=== PATIENT | female | born 1955 | race Caucasian/White ===

== ENCOUNTER 2019-08-10 00:40 | Inpatient (IN) | payer OTHER, MEDICAID ==
[~2019-08-10] VITALS: Ht 167.6 cm; Wt 83.0 kg
[2019-08-10 00:45] VITALS: BP 133/82
[2019-08-10 01:25] LABS: BASO # 0.1 10*3/uL (0.0-0.1); BASO % 0.6 % (0.0-1.0); EOS # 0.2 10*3/uL (0.0-0.4); EOS % 1.9 % (1.0-4.0); HEMATOCRIT 37.7 % (37.0-47.0); HEMOGLOBIN 11.9 g/dl (12.0-16.0); LYMPH # 1.2 10*3/uL (1.3-4.4); LYMPH % 11.2 % (27.0-41.0); MEAN CELL VOLUME 85.3 fl (81.0-99.0); MEAN CORPUSCULAR HGB 26.9 pg (27.0-31.0); MEAN CORPUSCULAR HGB CONC 31.6 g/dl (33.0-37.0); MEAN PLATELET VOLUME 10.4 fl (9.6-12.3); MONO # 0.8 10*3/uL (0.1-1.0); MONO % 7.5 % (3.0-9.0); NEUT # 8.5 10*3/uL (2.3-7.9); NEUT % 78.4 % (47.0-73.0); PLATELET COUNT AUTOMATED 241 10*3/uL (130-400); RED BLOOD COUNT 4.42 10*6/uL (4.10-5.10); RED CELL DISTRI WIDTH 13.5 % (0-14.5); WHITE BLOOD COUNT 10.8 10*3/uL (4.8-10.8)
[2019-08-10 01:41] LABS: ALBUMIN 3.4 gm/dl (3.1-4.5); ALKALINE PHOSPHATASE 84 U/L (45-117); BUN 13 mg/dl (7-24); CHLORIDE 91 mmol/L (98-107); CREATININE 1.37 mg/dL (0.55-1.02); POTASSIUM 2.7 mmol/L (3.5-5.1); SGOT/AST 14 IU/L (3-35); SGPT/ALT 16 U/L (12-78); SODIUM 135 mmol/L (136-145); TOTAL PROTEIN 7.3 gm/dL (6.4-8.2)
[2019-08-10 01:46] LABS: ACETAMINOPHEN (TYLENOL) < 5.0 ug/ml (10-30); ETHYL ALCOHOL < 3.0 mg/dl (<3)
[2019-08-10 02:29] LABS: BILIRUBIN NEGATIVE (NEGATIVE); BLOOD NEGATIVE (NEGATIVE); CLARITY SL CLOUDY (CLEAR); COLOR YELLOW (YELLOW); GLUCOSE NEGATIVE (NEGATIVE); KETONE NEGATIVE (NEGATIVE); NITRITE NEGATIVE (NEGATIVE); SPECIFIC GRAVITY 1.005 (1.005-1.030); UROBILINOGEN 0.2 E.U./dl (0.2-1.0)
[2019-08-10 02:30] LABS: EPITHELIAL CELLS 15-20; LEUKO ESTERASE TRACE (NEGATIVE); URINE AMPHETAMINES < 1000 (1000ng/ml); URINE BARBITURATES < 200 (200ng/ml); URINE BENZODIAZEPINES < 200 (200ng/ml); URINE CANNABINOIDS (THC) < 50 (50ng/ml); URINE COCAINE < 300 (300ng/ml); URINE METHADONE < 300 (300ng/ml); URINE OPIATES < 300 (300ng/ml)
[2019-08-10 02:33] LABS: URINE PHENCYCLIDINE < 25 (25ng/ml)
--- NOTE | 2019-08-10 05:17 | NUR ---
iv infusing per orders. no complaints. pleasant and cooperative.
--- NOTE | 2019-08-10 06:14 | NUR ---
PT ASSISTED TO REPOSITION FOR COMFORT. NO COMPLAINTS.
--- NOTE | 2019-08-10 06:32 | NUR ---
PROVIDED PT WITH ICE WATER PER REQUEST. NO COMPLAINTS. PLEASANT AND COOPERATIVE.
--- NOTE | 2019-08-10 06:53 | NUR ---
pt pleasant and cooperative. no complaints at this time.
[2019-08-10 07:15] VITALS: BP 126/80
--- NOTE | 2019-08-10 07:16 | NUR ---
NURSE REPORT RECEIVED. PT AWAKE AND ALERT. POTASSIUM INFUSED. BILATERAL WRIST WOUNDS WILL BE CLEANSED AND PHOTOGRAPHED NOW. NO VOICED COMPLAINTS.
--- NOTE | 2019-08-10 10:05 | NUR ---
family at bedside. POTASSIUM LEVEL NOW RETURNS, STILL LOW DESPITE MULTIPLE K+ DOSES. VITALS STABLE. LUNCH TRAY ORDERED. ADMISSION TO [facility]. IS PENDING ONCE K+ LEVEL IS WITHIN NORMAL LIMITS.
[2019-08-10 10:06] VITALS: BP 134/86
--- NOTE | 2019-08-10 10:12 | NUR ---
PT MEDICATED WITH MORE POTASSIUM PER ORDER. NO VOICED COMPLAINTS. CALLBELL IN PLACE.
--- NOTE | 2019-08-10 11:43 | NUR ---
NOW ORDERS AN ADDITIONAL K+ LEVEL TO BE DRAWN BY LAB. MEAL TRAY ORDERED.
--- NOTE | 2019-08-10 13:36 | NUR ---
[facility] CALLS REQUESTING THE ORIGINAL PINK SLIP FROM PREVIOUS SHIFT INSTEAD OF DR COWART'S PINK SLIP. ADMISSION THERE IS PENDING. PT SITTING UP WATCHING TV WITHOUT VOICED COMPLAINTS. MEAL TRAY AND TOILETING HAVE BEEN PROVIDED.
[2019-08-10] MEDS ORDERED: BREO ELLIPTA 21 EACH INH (14:34)
[2019-08-10] MEDS ORDERED: COREG6.25 MG PO (14:34)
[2019-08-10] MEDS ORDERED: DOFETILIDE125 MCG PO (14:35)
[2019-08-10] MEDS ORDERED: LASIX20 MG PO (14:36)
[2019-08-10] MEDS ORDERED: NATURE'S BLEND F1 MG PO (14:36)
[2019-08-10] MEDS ORDERED: LEVOXYL88 MCG PO (14:37)
[2019-08-10] MEDS ORDERED: PROTONIX TR40 M1 PO (14:38)
[2019-08-10] MEDS ORDERED: SINGULAIR10 M1 PO (14:38)
[2019-08-10] MEDS ORDERED: FERREX 150150 MG PO (14:40)
[2019-08-10] MEDS ORDERED: KLOR-CON 1010 ME1 PO (14:41)
[2019-08-10] MEDS ORDERED: PROAIR HFA8.5 GM INH (14:42)
[2019-08-10] MEDS ORDERED: RISPERDAL0.5 MG PO (14:43)
[2019-08-10] MEDS ORDERED: SPIRIVA RESPIMAT4 GM INH (14:44)
[2019-08-10] MEDS ORDERED: VENLAFAXINE150 MG PO (14:45)
[2019-08-10] MEDS ORDERED: MAGNESIUM400 M1 PO (14:45)
[2019-08-10] MEDS ORDERED: XARE20MG PO (14:46)
--- NOTE | 2019-08-10 15:02 | NUR ---
DR. SIFUENTES NOTIFIED OF NEW ADMISSION, DIAGNOSIS AND MEDICATIONS UPDATED AND REVIEWED. PATIENT WILL BE UNDER THE CARE OF DR. RIZZO.
[2019-08-10 15:27] VITALS: BP 135/72
--- NOTE | 2019-08-10 15:30 | NUR ---
DR. DIAZ ON UNIT TO ASSESS PATIENT.
--- NOTE | 2019-08-10 15:54 | NUR ---
IP 3 days yajaira per REMIGIO Trujillo 08/12. Ref # [id number]. Concurrent reviewer will be Kelly [phone].
--- NOTE | 2019-08-10 16:20 | NUR ---
DR. ALICEA ON UNIT TO ASSESS PATIENT.
--- NOTE | 2019-08-10 18:23 | NUR ---
DR. RODRIGUEZ NOTIFIED OF BILATERAL WRIST LACERATIONS AND NEEDING TREATMENTS IN PLACE. LEFT WIRST HAS YELLOW DRAINAGE, NO ODOR PRESENT.
--- NOTE | 2019-08-10 18:35 | NUR ---
DR. DIAZ ON UNIT TO ASSESS WRIST.
[2019-08-10 19:34] VITALS: BP 135/72
--- NOTE | 2019-08-10 19:35 | NUR ---
PATIENT IS ALERT AND ORIENT TO PERSON, PLACE AND SITUAITON; SLOW THOUGHT PROCESS, WORD FINDING DIFFICULTIES, THOUGHT BLOCKING DURING ASSESSMENT. DIFFICULTY WITH ATTENTION TO INTERVIEW QUESTIONS WITH MANY CUEING AND REMINDERS. PATIENT GUARDED REGARDING BEING DEPRESSED AND ASKING ABOUT SUICIDAL THOUGHTS, REFUSED TO ANSWER OR COMPLETE SUICIDAL ASSESSMENT. DENIES HAVING SUICIDAL THOUGHTS. DR. CUENCA UPDATED. PATIENT TO BE A LIGHT OF SIGHT UNTIL EVALUATED IN THE MORNING. PATIENT HAS VERY DRY SKIN, B/L GREAT TOES RED AND BLANCHABLE. BILATERAL ELBOW ROUGH WITH DRY SKIN. LACERATIONS TO BILATERAL WRIST ASSESSED AND DR. RODRIGUEZ UPDATED, DR. DIAZ ON UNIT TO ASSESS AND TREATMENT ORDERS IN PLACE. PATIENT IN DINING WITH OTHER PATIENT.
--- NOTE | 2019-08-10 22:00 | NUR ---
Patient alert and oriented x4. ST memory deficits noted. Patient denies SI at this time. No s/s of any responding to internal stimuli. Patient compliant with HS medications without any difficulty. Provided 1:1 for therapeutic communication and emotional support. Patient refused to talk anything regarding suicide at this time. Patient continues to be line of sight. Encouraged patient to contract for safety. Plan to continue to encourage medication compliance and also to contract for safety. Also continue to provide emotional support and provide for therapeutic communication with patient when needed. Will continue to monitor moods/behaviors. See [facility] flowsheet for further documentation.
--- NOTE | 2019-08-11 00:31 | NUR ---
24 HR chart check completed.
--- NOTE | 2019-08-11 06:17 | NUR ---
Patient slept approx. 8 hours throughout shift. Line of sight continued and maintained.
[2019-08-11 07:06] LABS: CHOLESTEROL 206 mg/dL (<200); HDL CHOLESTEROL 46 mg/dl (40-60); LDL CHOLESTEROL 136 mg/dL (9-159); TRIGLYCERIDES 120 mg/dl (<150); VLDL CHOLESTEROL 24 mg/dL (6-40)
[2019-08-11 07:43] LABS: VITAMIN D, 25-HYDROXY 44.2 ng/mL (30-100)
--- NOTE | 2019-08-11 07:43 | NUR ---
SHARLENE VALDIVIA [id number] Please refer to the physician's history and physical for past medical history, comorbid conditions, and allergies. Diagnosis: MAJOR DEPRESSION SEVERE RECURRENT GENERALIZED Rm Score: 18,AT RISK WOUND DESCRIPTIONS: Wound Number: 1 Location of the wound: Left wrist distal Type of wound: laceration Thickness: Full Size: 0.5cm x 4.5cm x 0.1cm Tunneling: none Undermining: none Sinus Tract: none Presence of Exudate: Serous Amount: Light Color: Yellow, red, brown Odor: None Periwound Skin Appearance: Normal Wound edges: approximated Pain (associated with wound): none at time of assessment How does patient state this happened? pt stated she cut herself on friday Wound Number: 2 Location of the wound: left wrist proximal Type of wound: laceration Thickness: Full Size: 0.7cm x 4.2cm x 0.1cm Tunneling: none Undermining: none Sinus Tract: none Presence of Exudate: Serous Amount: Light Color: Yellow, red Odor: None Periwound Skin Appearance: Normal Wound edges: approximated Pain (associated with wound): none at time of assessment How does patient state this happened? pt stated she cut herself on friday Wound Number: 3 Location of the wound: right wrist distal Type of wound: laceration Thickness: Partial Size: 0.2cm x 2.2cm x <0.1cm Tunneling: none Undermining: none Sinus Tract: none Presence of Exudate: none Amount: none Color: Red Odor: None Periwound Skin Appearance: Normal Wound edges: approximated Pain (associated with wound): none at time of assessment How does patient state this happened? pt stated she cut herself on friday Wound Number: 4 Location of the wound: right wrist proximal Type of wound: laceration Thickness: Partial Size: 0.2cm x 4.0cm x <0.1cm Tunneling: none Undermining: none Sinus Tract: none Presence of Exudate: none Amount: None Color: Red Odor: None Periwound Skin Appearance: Normal Wound edges: approximated Pain (associated with wound): none at time of assessment How does patient state this happened? pt stated she cut herself on friday Surface the patient is resting on: Proform SKIN PREVENTION RECOMMENDATION: 1. Pressure redistribution support surface as appropriate 2. Elevate heels 3. Remove boots/TEDS every shift and reapply 4. Head of bed 30 degrees as tolerated 5. Assess nutrition and hydration 6. Manage moisture 7. Avoid the use of containment devices while in bed 8. Use absorptive products on surfaces limit layers of linens on bed 9. Turn and reposition every 1-2 hours in bed and every 1 hour in chair as tolerated 10. Weight shifts every 15 minutes while up in chair 11. Offloading with pillows or device to keep heels elevated off bed 12. Monitor skin at least every shift 13. Inspect under medical devices twice a day WOUND TREATMENT RECOMMENDATIONS: Cleanse left wrist and right wrist with nss and apply bactroban bid and cover with dsd. Patient states she will care for these areas when she returns home and doesn't want to follow up in an outpatient setting at this time.
[2019-08-11 08:00] VITALS: BP 129/73
--- NOTE | 2019-08-11 08:05 | NUR ---
Treatment Plan meeting was held with Dr. Boone, URIEL Dickerson, RN, AT, COMMISSARY CLERK-S and Customer Care Manager. Plan for discharge next Week. Pt. to return home at discharge. Dr. Boone Gave Orders for Pt. to sign Voluntary Admission due to Vale Slip.
--- NOTE | 2019-08-11 08:45 | NUR ---
DR CUENCA ON UNIT TO ASSESS PT, LINE OF SIGHT D/C
--- NOTE | 2019-08-11 10:31 | NUR ---
Dr. Hill notified of wound care recommendations.
--- NOTE | 2019-08-11 10:37 | NUR ---
DR ALICEA AND TEAM ON UNIT TO ASSESS PT, UPDATE PROVIDED.
--- NOTE | 2019-08-11 11:01 | NUR ---
SPOKE WITH PTS SISTER ZACHARY, WHO IS QUESTIONING IF WE ARE ABLE TO GETS PTS [place]. SPOKE WITH DR DIAZ AT [phone] PER IF FAMILY IS ABLE TO BRING THE MEDICATION FROM HOME PLEASE HAVE THEM DO SO
--- NOTE | 2019-08-11 11:37 | NUR ---
AM GROUP PT PARTICIPATED IN ASSESSMENT AND THEN WENT TO GET A SHOWER. PT WAS RELUCTANT TO ANSWER SOME QUESTIONS BUT WAS COOPERATIVE OVERALL.
--- NOTE | 2019-08-11 15:30 | NUR ---
P: PT FIXATED ON HER MEDICATIONS, REPEATING THE NAME OF HER MEDICATIONS OVER AND OVER AGAIN AND STATING "WHAT IF I FORGET THE NAME?", PT ANXIOUS AT TIMES. PT PARANOID STATING "IM SORRY IF I UPSET YOU TODAY." PT SHOWING SIGNS OF INCREASED CONFUSION. WHEN STAFF WAS ASSISTING PT WITH HER SHOWER, PT WAS UNABLE TO FOLLOW SIMPLE DIRECTIONS. PT SPEECH NON-SENISICAL AND INAPPROPRAITE TO SITUATION AT TIMES. I: PROVIDE EMOTIONAL SUPPORT AND 1:1 FOR PT TO VOICE FEELINGS, PROVIDE MED EDUCATION, ADVISED PT THAT UPON DISCHARGE SHE WILL RECEIVE A LIST OF HER CURRENT MEDICATIONS AND STAFF WILL REVIEW THEM WITH HER PRIOR TO DISCHARGE. PROVIDE REASSURANCE TO PT THAT SHE HAS NOT UPSET ANYONE TODAY. R: PT ALERT TO PERSON, PLACE AND TIME AND SITUATION, SHORT TERM MEMORY DEFICITS AND PERIODS OF CONFUSION NOTED AT THIS TIME. PT MED COMPLIANT WITHOUT DIFFICULTY. PT DENIES ANY SUICIDAL THOUGHTS AT THIS TIME. NO HALLUCINATIONS OR DELUSIONS NOTED. PT AMBULATORY THROUGHOUT UNIT, GAIT SLOW AND STEADY. PT CONTINENT OF BOWEL AND BLADDER. P: MONITOR PT BEHAVIORS ON Q15 MIN SAFETY CHECKS, ENCOURAGE MED COMPLIANCE AND PROVIDE MED EDUCATION, PROVIDE EMOTIONAL SUPPORT AND 1:1 FOR PT TO VOICE FEELINGS, RE-ORIENT AND PRESENT RELAITY NEEDED
--- NOTE | 2019-08-11 15:34 | NUR ---
PM GROUP PT ATTENDED AFTERNOON GROUP THERAPY AND PARTICIPATED IN ALL ACTIVITIES. PT WAS FOCUSED AND ON TASK. PT EXPRESSED NO SUICIDAL IDEATIONS WHILE IN GROUP
--- NOTE | 2019-08-11 16:05 | NUR ---
Met with pt individually this afternoon. Pt was cooperative. Pt was slow to speak as if processing information before responding. However, pt was not displaying thought blocking as she did yesterday when speaking to this personal lines underwriter. Pt confirmed again to this personal lines underwriter that pt is not facing any extreme stressors currently in her life. Pt also confirmed that she has no emotional response to her SA and admitted that it is odd that she has no emotions about it. Pt spoke of her sister Dinorah and of how close they are. Offered to schedule a family meeting, but pt declined this. Pt then spoke of enjoying the coloring that she did in afternoon group. Pt asked to speak to Radha Linares, social work coordinator. After pt met with Radha briefly, this personal lines underwriter continued to speak with pt. Pt spoke of her etelvina and asked if there could be a Bible study. Informed pt that there wasn't one planned but that this personal lines underwriter could provide some devotions for pt to read. Pt became very animated and stated, "Yes, that's exactly what I need. Can you bring them to me?" Provided devotional pages to pt.
--- NOTE | 2019-08-11 17:15 | NUR ---
SPOKE WITH DR DIAZ AT [phone] RE: PT WOUNDS ORDERS AND THE ORDER FOR BACTROBAN IS STILL NEEDED. NO FURTHER ORDERS AT THIS TIME.
[2019-08-11 20:00] VITALS: BP 128/78
--- NOTE | 2019-08-11 23:44 | NUR ---
P-CONFUSED, PARANOID I-REDIRECTION WITH 1:1 THERAPEUTIC INTERVENTIONS AND PRESENT REALITY. EDUCATE AND ENCOURAGE GROUP THERAPY WHILE AWAKE R-PATIENT ALERT WITH SHORT TERM AND IRON INSTALLER MEMORY DEFICITS. PATIENT MEDICATION COMPLIANT AT HS. PATIENT PROVIDED NOURISHMENT AND FLUIDS AT HS. PATIENT WITH NO HALLUCINATIONS BUT WITH PARANOID DELUSIONS. PATIENT STATING "I DON'T WANT TO GO IN MY ROOM BECAUSE I DON'T THINK [facility] LIKES ME". PATIENT ABLE TO GO TO ROOM TO GO TO BED WITH REDIRECTION. PATIENT WITH NO SUICIDAL OR HOMICIDAL IDEATIONS. PATIENT WITH LIMITED INTERACTION WITH PEERS IN DINING AREA. P-CONTINUE TO ENCOURAGE MEDICATION COMPLIANCE, CONTINUE TO PRESENT REALITY, ENCOURAGE GROUP THERAPY WHILE AWAKE
[2019-08-12 08:00] VITALS: BP 153/78
--- NOTE | 2019-08-12 08:00 | NUR ---
Treatment Plan meeting was held with Dr. Boone, RN, AT and Brick Stacker. Plan for discharge Friday. Pt. will return home at discharge.
--- NOTE | 2019-08-12 08:09 | NUR ---
Patient eating breakfast at this time in dining room with peers. Respirations easy and regular. Vital signs stable. No overt distress. REANNA KAISER on unit to see pt at this time, update given.
--- NOTE | 2019-08-12 09:04 | NUR ---
Dr. Chambers notified of wound care recommendations
--- NOTE | 2019-08-12 10:16 | NUR ---
PT STANDING IN THE [address] WAY LEANING AGAINST THE WALL, WHEN ASKED WHAT SHE WAS DOING PT STATED "BREATHING, I LIVE IN [place] AND I WEAR OXYGEN AT HOME AND THE DRS DON'T COMMUNICATE." ADVISED PT THAT SHE DOES NOT CURRENTLY HAS AN ORDER FOR O2. O2 100%RA, PULSE 88. NO S/S OF DISTRESS NOTED AT THIS TIME. PT STATED "THAT OTHER WOMAN'S OXYGEN IS MAKING ME ANXIOUS." STAFF PROVIDED EMOTIONAL SUPPORT AND 1:1 FOR PT TO VOICE FEELINGS, PROVIDED EDUCATION THAT PT DOES NOT REQUIRE OXYGEN AT THIS TIME D/T HER O2 LEVEL BEING 100% ON ROOM AIR. ENCOURAGED PT TO REST AND PRACTICE DEEP BREATHING EXERCISES. PT SITTING IN THE DINING ROOM AT THIS TIME, NO FURTHER ISSUES NOTED.
--- NOTE | 2019-08-12 11:35 | NUR ---
DR WEBSTER AND DR SIFUENTES ON UNIT TO ASSESS PT, UPDATE PROVIDED.
--- NOTE | 2019-08-12 13:31 | NUR ---
AM GROUP PT ATTENDED MORNING GROUP THERAPY AND PARTICIPATED BY BUILDING A BIRDHOUSE. PT WAS FOCUSED AND ON TASK. PT EXPRESSED NO PARANOIA OR SUICIDAL IDEATIONS WHILE IN GROUP
--- NOTE | 2019-08-12 14:55 | NUR ---
IP 5 additional days yajaira per Kelly at [facility], NRD 08/18.
--- NOTE | 2019-08-12 15:46 | NUR ---
PM GROUP PT ATTENDED AFTERNOON GROUP THERAPY AND PARTICIPATED BY COLORING AND CONVERSING WITH THIS FRICTION PAINT MACHINE TENDER. PT THOUGHT PROCESS IS MUCH BETTER THAN YESTERDAY. PT WAS ON TOPIC AND FLUENT. PT EXPRESSED NO SUICIDAL IDEATIONS DURING GROUP AND STATED, "I THINK I AM GOING TO DO OUTPATIENT REHAB WHEN I LEAVE" PT SEEMED HOPEFUL FOR HER FUTURE.
--- NOTE | 2019-08-12 17:13 | NUR ---
SPOKE WITH DR SIFUENTES AT [phone] RE: CLARIFICATION FOR BACTROBAN. NEW ORDERS RECEIVED.
[2019-08-12 19:42] VITALS: BP 114/64
--- NOTE | 2019-08-13 03:21 | NUR ---
P-CONFUSED, PARANOID/PREOCCUPIED I-REDIRECTION WITH 1:1 THERAPEUTIC INTERVENTIONS AND PRESENT REALITY. EDUCATE AND ENCOURAGE GROUP THERAPY WHILE AWAKE R-PATIENT ALERT WITH SHORT TERM AND VP SOFTWARE SUPPORT MEMORY DEFICITS. PATIENT MEDICATION COMPLIANT AT HS. PATIENT PROVIDED NOURISHMENT AND FLUIDS AT HS. PATIENT WITH NO HALLUCINATIONS BUT WITH PARANOID AND PREOCCUPIED WITH MEDICATIONS AT HS. THIS NURSE PROVIDED MEDICATION EDUCATION DUE TO PATIENT AFRAID OF TAKING NEW MEDICATION. MEDICATION EDUCATION EFFECTIVE AT HS. PATIENT WITH NO SUICIDAL OR HOMICIDAL IDEATIONS. PATIENT WITH INTERACTION WITH PEERS IN DINING AREA. P-CONTINUE TO ENCOURAGE MEDICATION COMPLIANCE, CONTINUE TO PRESENT REALITY, ENCOURAGE GROUP THERAPY WHILE AWAKE
--- NOTE | 2019-08-13 05:47 | NUR ---
PATIENT SLEPT 8 HOURS OF UNINTERRUPTED SLEEP THROUGHOUT SHIFT. Q 15 MINUTE CHECKS MAINTAINED. 24 HR chart check completed.
[2019-08-13 07:58] VITALS: BP 116/64
--- NOTE | 2019-08-13 11:40 | NUR ---
AM GROUP PT ATTENDED MORNING GROUP THERAPY AND PARTICIPATED BY PAINTING HER BIRDHOUSE. PT BECAME PARANOID OVER HAVING TEMPERA PAINT ON HER HANDS. PT WAS ASSURED THAT IT WAS WASHABLE. PT BECAME MORE PARANOID AND AGITATED STATING, "IT HAS TO COME OFF, THEY NEED TO SCRUB MY WOUNDS!" PT WAS GIVEN WIPES TO CLEAN HER HANDS AND STATED, "OKAY, ENOUGH! DON'T TALK ANYMORE!" PT WAS GIVEN SPACE.
--- NOTE | 2019-08-13 12:45 | NUR ---
P: PT ANXIOUS AT TIMES. PT MOOD IS DEPRESSED. I: PROVIDE EMOTIONAL SUPPORT AND 1:1 FOR PT TO VOICE FEELINGS, ENCOURAGE MED COMPLIANCE AND PROVIDE MED EDUCATION, ENCOURAGE GROUP PARTICIPATION AND SOCIALIZATION R: PT ALERT TO PERSON, PLACE, TIME AND SITUATION. PT MED COMPLIANT WITHOUT DIFFICULTY, MED EDUCATION PROVIDED. PT CALM, MOOD REMAINS DEPRESSED AND ANXIOUS AT TIMES. NO HALLUCINATIONS OR DELUSIONS NOTED. PT DENIES ANY SUICIDAL THOUGHTS OR BEHAVIORS NOTED. PT AMBULATORY THROUGHOUT UNIT, GAIT STEADY. PT CONTINENT OF BOWEL AND BLADDER. P: PROVIDE EMOTIONAL SUPPORT AND 1:1 FOR PT TO VOICE FEELINGS, ENCOURAGE MED COMPLIANCE AND PROVIDE MED EDUCATION, MONITOR PT BEHAVIORS ON Q15 MIN SAFETY CHECKS, ENCOURAGE GROUP PARTICIPATION AND SOCIALIZATION
--- NOTE | 2019-08-13 15:40 | NUR ---
PM GROUP PT ATTENDED AFTERNOON GROUP THERAPY AND PARTICIPATED BY DOING A WORDSEARCH AND [place]. PT EXPRESSED NO PARANOIA OR SUICIDAL IDEATIONS WHILE IN GROUP
[2019-08-13 20:00] VITALS: BP 133/75
--- NOTE | 2019-08-13 23:16 | NUR ---
P-CONFUSED, ISOLATIVE I-REDIRECTION WITH 1:1 THERAPEUTIC INTERVENTIONS AND PRESENT REALITY. EDUCATE AND ENCOURAGE GROUP THERAPY WHILE AWAKE R-PATIENT ALERT WITH SHORT TERM AND SHELTER MEMORY DEFICITS. PATIENT MEDICATION COMPLIANT AT HS. PATIENT PROVIDED NOURISHMENT AND FLUIDS AT HS. PATIENT WITH NO HALLUCINATIONS OR DELUSIONS. PATIENT WITH NO SUICIDAL OR HOMICIDAL IDEATIONS. PATIENT ISOLATIVE IN ROOM AT HS P-CONTINUE TO ENCOURAGE MEDICATION COMPLIANCE, CONTINUE TO PRESENT REALITY, ENCOURAGE GROUP THERAPY WHILE AWAKE
--- NOTE | 2019-08-14 06:19 | NUR ---
PATIENT SLEPT 8 HOURS OF UNINTERRUPTED SLEEP THROUGHOUT SHIFT. Q 15 MINUTE CHECKS MAINTAINED. 24 HR chart check completed.
[2019-08-14 07:25] VITALS: BP 110/59
[2019-08-14 07:27] LABS: CREATININE 1.4 mg/dL (0.55-1.02); POTASSIUM 3.4 mmol/L (3.5-5.1); TOTAL PROTEIN 6.2 gm/dL (6.4-8.2)
--- NOTE | 2019-08-14 12:08 | NUR ---
AM GROUP/LEISURE PT IN ATTENDNACE AND PARTICIPATED ENTIRE GROUP. PT PLEASANT AND ON TASK WITH NO S.I. OR PARANOIA EXPRESSED.
--- NOTE | 2019-08-14 15:32 | NUR ---
P: DEPRESSED MOOD. I: PROVIDED 1:1 FOR THERAPEUTIC COMMUNICATION. ENCOURAGED MEDICATION COMPLIANCE. MONITORED BEHAVIORS WITH Q15 MINUTE SAFETY CHECKS. ENCOURAGED PT TO ATTEND/PARTICIPATE IN GROUP. ASSISTED PT IN IDENTIFYING COPING SKILLS. PROVIDED MEDICATION EDUCATION. R: PT SPOKE TO THIS NURSE, HOWEVER WAS GUARDED. MEDICATION COMPLIANT WITHOUT DIFFICULTY. PT ATTENDED/PARTICIPATED IN GROUP. PT ABLE TO IDENTIFY 3 COPING SKILLS. PT VERBALIZED UNDERSTANDING OF MEDICATIONS. DENIES SI/HI THOUGHTS. DENIES DEPRESSION. ANBULATORY WITH A STEADY GAIT. P: PROVIDE 1:1 FOR THERAPEUTIC COMMUNICATION. ENCOURAGE MEDICATION COMPLIANCE. MONITOR BEHAVIORS WITH Q15 MINUTE SAFETY CHECKS. ENCOURAGE PT TO ATTEND/PARTICIPATE IN GROUP. ASSIST PT IN IDENTIFYING COPING SKILLS. PROVIDE MEDICATION EDUCATION. SEE [facility] FLOWSHEET FOR SPECIFIC MONITORING.
--- NOTE | 2019-08-14 15:57 | NUR ---
PM GROUP/BINGO!/CRISTOPHERFT PT ATTENDED AN DPARTICIPATED IN ALL GROUP ACTIVITY. PT EXPRESSES NO S.I. OR PARANOIA AT THIS TIME.
[2019-08-14 20:00] VITALS: BP 112/60
--- NOTE | 2019-08-15 00:36 | NUR ---
P-CONFUSED I-REDIRECTION WITH 1:1 THERAPEUTIC INTERVENTIONS AND PRESENT REALITY. EDUCATE AND ENCOURAGE GROUP THERAPY WHILE AWAKE R-PATIENT ALERT WITH SHORT TERM AND SENIOR CARE MEMORY DEFICITS. PATIENT MEDICATION COMPLIANT AT HS. PATIENT PROVIDED NOURISHMENT AND FLUIDS AT HS. PATIENT WITH NO HALLUCINATIONS OR DELUSIONS. PATIENT WITH NO SUICIDAL OR HOMICIDAL IDEATIONS. PATIENT INTERACTING WITH PEERS IN DINING AREA AT HS. P-CONTINUE TO ENCOURAGE MEDICATION COMPLIANCE, CONTINUE TO PRESENT REALITY, ENCOURAGE GROUP THERAPY WHILE AWAKE
--- NOTE | 2019-08-15 06:09 | NUR ---
PATIENT SLEPT 6 HOURS OF INTERRUPTED SLEEP THROUGHOUT SHIFT. Q 15 MINUTE CHECKS MAINTAINED. 24 HR chart check completed.
[2019-08-15 08:00] VITALS: BP 139/71
--- NOTE | 2019-08-15 17:28 | NUR ---
P: DEPRESSED MOOD. I: PROVIDED 1:1 FOR THERAPEUTIC COMMUNICATION. ENCOURAGED MEDICATION COMPLIANCE. MONITORED BEHAVIORS WITH Q15 MINUTE SAFETY CHECKS. ENCOURAGED PT TO ATTEND/PARTICIPATE IN GROUP. ASSISTED PT IN IDENTIFYING COPING SKILLS. PROVIDED MEDICATION EDUCATION. R: PT SPOKE TO THIS NURSE, HOWEVER WAS GUARDED. MEDICATION COMPLIANT WITHOUT DIFFICULTY. PT ATTENDED/PARTICIPATED IN GROUP. PT ABLE TO IDENTIFY 3 COPING SKILLS. PT VERBALIZED UNDERSTANDING OF MEDICATIONS. DENIES SI/HI THOUGHTS. DENIES DEPRESSION. ANBULATORY WITH A STEADY GAIT. P: PROVIDE 1:1 FOR THERAPEUTIC COMMUNICATION. ENCOURAGE MEDICATION COMPLIANCE. MONITOR BEHAVIORS WITH Q15 MINUTE SAFETY CHECKS. ENCOURAGE PT TO ATTEND/PARTICIPATE IN GROUP. ASSIST PT IN IDENTIFYING COPING SKILLS. PROVIDE MEDICATION EDUCATION. [facility] FLOWSHEET FOR SPECIFIC MONITORING.
[2019-08-15 20:00] VITALS: BP 116/61
[2019-08-16 07:40] VITALS: BP 127/74
--- NOTE | 2019-08-16 08:30 | NUR ---
Treatment Plan meeting was held with Dr. Boone, URIEL Dickerson RN, MANAGER HEMATOLOGY-S and Wharf Labourer. Plan for discharge next week. Pt. came to [facility] from the [facility]. Will reach out to facility today to discuss discharge planning.
--- NOTE | 2019-08-16 08:30 | NUR ---
Treatment Plan meeting was held with Dr. Boone, URIEL Dickerson RN, OFFICE ASST-S and Sight Mounter. Plan for discharge today with return home with Follow up appointments scheduled.
[2019-08-16] MEDS ORDERED: ARIPIPRAZOLE10 MG PO (09:51)
[2019-08-16] MEDS ORDERED: PRISTIQ50 MG PO (09:51)
--- NOTE | 2019-08-16 10:32 | NUR ---
notified of discharge for today.
--- NOTE | 2019-08-16 11:41 | NUR ---
AM GROUP PT WAS PRESENT FOR MORNING GROUP THERAPY AND DID SOME ACTIVITIES BUT COULD NOT STAY WITH ONE TASK FOR MORE THAN 5 MINUTES,STATING "I JUST CAN'T DO THIS RIGHT NOW" PT BELIEVES THAT SHE WILL NOT BE DISCHARGED TODAY STATING, "I DON'T KNOW? SOMETHING MIGHT HAPPEN?" WHEN PRESSED, PT CHANGED THE SUBJECT. PT EXPRESSED NO SUICIDAL IDEATIONS WHILE IN GROUP.
[2019-08-16] MEDS ORDERED: DOXYCYCLINE MO100 M1 PO (12:06)
--- NOTE | 2019-08-16 12:41 | NUR ---
NO ADVERSE MOODS OR BEHAVIORS THIS SHIFT. PT IS ALERT AND ORIENTED. RESPS EASY AND EVEN ON ROOM AIR. MOOD STABLE, EUTHYMIC WITH APPROPRIATE AFFECT. SPEECH IS WNL AND COHERENT, ABLE TO MAKE NEEDS KNOWN WITHOUT DIFFICULTY. PT DENIES SI/HI, INTENT OR PLAN. PT DENIES HALLUCINATIONS, NO RESPONSE TO INTERNAL SITMULI NOTED. NO PARANOIA OR DELUSIONS ONTED. MED COMPLIANT WITHOUT DIFFICULTY. DISCHARGE INSTRUCTIONS REVIEWED WITH PT PRIOR TO DISCHARGE WITH PT'S STATED UNDERSTANDING OF ALL. MEDICATIONS ALSO REVIEWED WITH PT'S SISTER. ALL QUESTIONS ANSWERED. HOME MEDS RETURNED TO PT. PT WAS DISCHARGED TO HOME IN CARE OF SISTER VIA PRIVATE VEHICLE AT [phone], ALL PERSONAL BELONGINGS SENT WITH PT. PT ESCORTED OFF UNIT BY [facility] DIRECTOR IN STABLE CONDITION.
--- NOTE | 2019-08-17 13:50 | NUR ---
Message left with discharge clinical to Kelly at [facility]
== END 2019-08-16 12:41 | disposition home or self-care (01) | DRG 885 ==
LOC: ED 00:40 → 3N 13:41
PROVIDERS: Emergency Medicine; Registered Nurse; ADMIT Psychiatry & Neurology Psychiatry
DX: F33.2 Major depressive disorder, recurrent severe without psychotic features (principal); E87.1 Hypo-osmolality and hyponatremia; R45.851 Suicidal ideations; D64.9 Anemia, unspecified; E87.6 Hypokalemia; E87.8 Other disorders of electrolyte and fluid balance, not elsewhere classified; N18.3 Chronic kidney disease, stage 3 (moderate); R73.9 Hyperglycemia, unspecified; I50.9 Heart failure, unspecified; J44.9 Chronic obstructive pulmonary disease, unspecified; E61.1 Iron deficiency; I48.91 Unspecified atrial fibrillation; E03.9 Hypothyroidism, unspecified; K21.9 Gastro-esophageal reflux disease without esophagitis; E53.8 Deficiency of other specified B group vitamins; F41.1 Generalized anxiety disorder; F10.21 Alcohol dependence, in remission; S61.512A Laceration without foreign body of left wrist, initial encounter; S61.511A Laceration without foreign body of right wrist, initial encounter; X83.8XXA Intentional self-harm by other specified means, initial encounter; Y93.89 Activity, other specified; Y92.89 Other specified places as the place of occurrence of the external cause; Y99.8 Other external cause status; Z95.1 Presence of aortocoronary bypass graft; Z88.8 Allergy status to other drugs, medicaments and biological substances; Z79.899 Other long term (current) drug therapy; Z87.891 Personal history of nicotine dependence

== ENCOUNTER 2019-11-29 13:57 | Inpatient (IN) | payer OTHER, MEDICAID ==
[~2019-11-29] VITALS: Ht 168.9 cm; Wt 88.1 kg
[~2019-11-29 13:57] MED LIST: ARIPIPRAZOLE10 MG PO; BREO ELLIPTA 21 EACH INH; COREG6.25 MG PO; DOFETILIDE125 MCG PO; DOXYCYCLINE MO100 M1 PO; FERREX 150150 MG PO; KLOR-CON 1010 ME1 PO; LASIX20 MG PO; LEVOXYL88 MCG PO; MAGNESIUM400 M1 PO; NATURE'S BLEND F1 MG PO; PRISTIQ50 MG PO; PROAIR HFA8.5 GM INH; PROTONIX TR40 M1 PO; RISPERDAL0.5 MG PO; SINGULAIR10 M1 PO; SPIRIVA RESPIMAT4 GM INH; VENLAFAXINE150 MG PO; XARE20MG PO
[2019-11-29 14:05] VITALS: BP 117/75
[2019-11-29 14:25] LABS: BASO % 0.5 % (0.0-1.0); EOS # 0.4 10*3/uL (0.0-0.4); EOS % 4.4 % (1.0-4.0); HEMATOCRIT 31.8 % (37.0-47.0); LYMPH % 11.7 % (27.0-41.0); MEAN CORPUSCULAR HGB CONC 29.2 g/dl (33.0-37.0); MEAN PLATELET VOLUME 9.3 fl (9.6-12.3); MONO # 0.6 10*3/uL (0.1-1.0); MONO % 6.7 % (3.0-9.0); NEUT # 6.6 10*3/uL (2.3-7.9); NEUT % 76.4 % (47.0-73.0); PLATELET COUNT AUTOMATED 215 10*3/uL (130-400); RED BLOOD COUNT 3.88 10*6/uL (4.10-5.10); RED CELL DISTRI WIDTH 14.5 % (0-14.5); WHITE BLOOD COUNT 8.6 10*3/uL (4.8-10.8)
[2019-11-29 14:34] LABS: ACT PARTIAL THROMBO TIME 29.9 SECONDS (20.0-32.1)
[2019-11-29 14:44] LABS: ALBUMIN 3.4 gm/dl (3.1-4.5); ALKALINE PHOSPHATASE 75 U/L (45-117); BUN 11 mg/dl (7-24); CHLORIDE 98 mmol/L (98-107); CREATININE 0.87 mg/dL (0.55-1.02); LIPASE 140 U/L (73-393); POTASSIUM 3.9 mmol/L (3.5-5.1); SGOT/AST 12 IU/L (3-35); SGPT/ALT 15 U/L (12-78); SODIUM 137 mmol/L (136-145); TOTAL PROTEIN 7.3 gm/dL (6.4-8.2)
[2019-11-29 14:49] LABS: TROPONIN I < 0.015 ng/ml (<0.045)
[2019-11-29 16:24] VITALS: BP 136/75
--- NOTE | 2019-11-29 18:13 | NUR ---
A 63, admitted to , under the services of TATIANA Thompson DO with a diagnosis of COPD EXACERBATION. Chief complaint is SOB. Patient arrived via wheel chair from ER. Monitor applied. Initial assessment completed. Vital signs taken and recorded. TATIANA THOMPSON DO notified of admission to the unit. Orders received. See assessment for past medical history, medications and allergies. Patient and/or family oriented to unit. [facility] visitation policy reviewed. Clothing/patient valuable form completed. BETH RITTER
[2019-11-29 18:15] VITALS: BP 138/84
[2019-11-29] MEDS ORDERED: BUSPAR5 MG PO (18:37)
[2019-11-29 20:00] VITALS: BP 141/75
--- NOTE | 2019-11-29 20:00 | NUR ---
Checked on patient for PRN tx. Pt stated she just wanted to eat her dinner. Says she felt fine. 93% on her home 3L NC. Informed to call if she ever felt SOB. Pt uses a PRN inhaler at home(also Shantelle and Michelle).
--- NOTE | 2019-11-29 20:50 | NUR ---
PT. UP IN ROOM AD LOPEZ. HEP LOCK IN TERRY ASYMPT. LUNGS DIMINISHED BILAT, PULSE OX 100% ON 3L NC. ABDOMEN SOFT, NONDISTENDED AND NORMO. TRACE BLE EDEMA NOTED. RESP. EASY AND REG, NO DISTRESS. AIMEE GORDILLO RN
--- NOTE | 2019-11-29 21:31 | NUR ---
DR. CABAN NOTIFIED OF PATIENTS REQUEST FOR HOME MEDICATIONS THAT HAVE NOT BEEN REORDERED. STATED HE WOULD REORDER HOME MEDS NOW. AIMEE GORDILLO RN
[2019-11-30] VITALS: BP 141/85
[2019-11-30 05:45] LABS: BUN 13 mg/dl (7-24); CHLORIDE 97 mmol/L (98-107); CREATININE 0.72 mg/dL (0.55-1.02); POTASSIUM 4.2 mmol/L (3.5-5.1); SODIUM 137 mmol/L (136-145)
[2019-11-30 06:05] LABS: HEMATOCRIT 32.7 % (37.0-47.0); MEAN CELL VOLUME 82.6 fl (81.0-99.0); MEAN CORPUSCULAR HGB 23.7 pg (27.0-31.0); MEAN CORPUSCULAR HGB CONC 28.7 g/dl (33.0-37.0); MEAN PLATELET VOLUME 10.4 fl (9.6-12.3); PLATELET COUNT AUTOMATED 232 10*3/uL (130-400); RED BLOOD COUNT 3.96 10*6/uL (4.10-5.10); RED CELL DISTRI WIDTH 14.2 % (0-14.5)
[2019-11-30 06:48] LABS: OVALOCYTES FEW; PLATELET SUFFICIENCY NORMAL (NORMAL); POLYCHROMASIA SLIGHT; TARGET CELLS FEW; TOTAL CELLS COUNTED 100 #CELLS
[2019-11-30 08:00] VITALS: BP 132/68
--- NOTE | 2019-11-30 09:00 | NUR ---
Electrical Wirer in to talk to patient. Patient states lives at [facility] with alone. There are no steps in the home. Physician: marie lal Pharmacy: [facility] Home health services: none at present Patient's level of ADLs: INDEPENDENT Patient has working utilities: all working DME: home oxygen, portable tanks walker Follow-up physician's appointment after d/c: will be made by hospitalist nurse director upon discharge Does patient want to access PORTAL?: no Discharge plan discussed with patient, she states she lives in an apartment alone, she is independent in adls, she states she will be returning home when able, discussed with her VNA and educated her on the services they provide, she was receptive to this and would like [facility], [facility], will send a referral to [facility], [facility] for when patient is discharged. JOHNATHAN SAWANT
[2019-11-30 12:00] VITALS: BP 134/56
--- NOTE | 2019-11-30 14:00 | NUR ---
SPOKE WITH PATIENT REGARDING BRINGING TIKOSYN FROM HOME. PT STATES THAT HER HOME MEDS COME PRE-PACKAGED TOGETHER AND SHE IS UNSURE WHICH PILL IT IS. TOLD PATIENT IF SOMEONE COULD DROP OFF HER MEDS WE COULD HAVE PHAMRACIST TELL US WHICH PILL IT IS. SHE STATES SHE WILL WORK ON GETTING SOMEONE TO DROP OFF MEDS.
--- NOTE | 2019-11-30 15:00 | NUR ---
ATTEMPTED TO NOTIFY OF NEW CONSULT - DID NOT ANSWER AT THIS TIME
--- NOTE | 2019-11-30 15:11 | NUR ---
Occupational Therapy evaluation completed on with full evaluation to follow. Recommend occupational therapy per plan of care and return home with HH and family support upon discharge. Thank you for this referral. Haritha Cee OTR/L
[2019-11-30 16:00] VITALS: BP 118/69
--- NOTE | 2019-11-30 19:38 | NUR ---
Shift chart check completed.
[2019-11-30 20:00] VITALS: BP 120/64
[2019-12-01] VITALS: BP 127/74
[2019-12-01 08:00] VITALS: BP 130/73
--- NOTE | 2019-12-01 09:00 | NUR ---
case management visits with patient, she will return home when discharged, case management spoke to Kallie from [facility] this am and informed her of the home referral, case management will follow for any other home needs
--- NOTE | 2019-12-01 10:36 | NUR ---
PHYSICAL THERAPY Physical Therapy evaluation completed on 4E with full evaluation to follow. Low complexity PT evaluation per chart review and evaluation, [id number]. Recommend physical therapy per plan of care and Home Health upon discharge. Thank you for this referral. Bing Chance,PT,DPT
[2019-12-01 12:00] VITALS: BP 142/74
[2019-12-01 12:56] LABS: ABG BASE EXCESS 9.9 mmol/L (-2.0-2.0); ARTERIAL BLOOD GAS PH 7.38 (7.35-7.45)
--- NOTE | 2019-12-01 14:19 | NUR ---
OT NOTE Pt was seen this P.M. 1:1 for 30 minute OT session. Upon arrival pt was sitting upright on the EOB. Pt identified by name and and had no complaints at this time. Pt presented to therapy with continuous 3.5L-O2 via NC which she remained on throughout the entire session. Pt's resting SpO2 was 99% and heart rate 79 bpm. While sitting EOB pt was educated and provided with energy conservation in self care tasks handout. All questions were addressed and answered and techniques demonstrated. Pt then completed functional mobility to the bathroom and back with SBA and use of w/w for UE support. Once returning to the EOB pt's SpO2 was 94% and heart rate 109 bpm. Pt was left sitting upright on the EOB with call light in hand, tray table in place, and phone in reach. Continue with rec D/C plan to home with home health. SURAJ Mcleod/Mao
[2019-12-01] MEDS ORDERED: VALERIAN150 MG PO (14:26)
[2019-12-01] MEDS ORDERED: MELATONIN5 M1 PO (14:26)
[2019-12-01 16:00] VITALS: BP 120/59
[2019-12-01 20:00] VITALS: BP 152/81
--- NOTE | 2019-12-01 20:45 | NUR ---
PATIENT ASSESSMENT COMPLETED AT THIS TIME WITHOUT INCIDENT AT THIS TIME. PATIENT DENIES ANY PAIN, DISTRESS, OR NEEDS AT THIS TIME. PATIENT REQUESTING SOMETHING FOR SLEEP AT THIS TIME, DR. RICHMOND CONTACTED AND ORDERS RECEIVED.
[2019-12-02] VITALS: BP 130/74
--- NOTE | 2019-12-02 02:47 | NUR ---
24 HOUR CHART CHECK COMPLETED
--- NOTE | 2019-12-02 04:10 | NUR ---
PATIENT RESTING IN BED IN A POSITION OF COMFORT WITH EYES CLOSED AT THIS TIME. RESPIRATIONS EASY AND NON-LABORED AT THIS TIME. CALL LIGHT WITHIN REACH, WILL CONTINUE TO MONITOR.
[2019-12-02 05:53] LABS: HEMATOCRIT 32.1 % (37.0-47.0); MEAN CELL VOLUME 82.7 fl (81.0-99.0); MEAN CORPUSCULAR HGB 23.2 pg (27.0-31.0); MEAN PLATELET VOLUME 10.3 fl (9.6-12.3); PLATELET COUNT AUTOMATED 239 10*3/uL (130-400); RED BLOOD COUNT 3.88 10*6/uL (4.10-5.10); RED CELL DISTRI WIDTH 14.5 % (0-14.5)
[2019-12-02 06:01] LABS: BUN 17 mg/dl (7-24); CHLORIDE 95 mmol/L (98-107); CREATININE 0.82 mg/dL (0.55-1.02); SODIUM 137 mmol/L (136-145)
--- NOTE | 2019-12-02 06:06 | NUR ---
DR. RICHMOND NOTIFIED AT THIS TIME OF CRITICAL LAB RESULT OF CO2 42, NO ORDERS RECEIVED.
[2019-12-02 07:09] LABS: BASOPHILS 1 % (0-1); PLATELET SUFFICIENCY NORMAL (NORMAL); TOTAL CELLS COUNTED 100 #CELLS
[2019-12-02 07:29] LABS: ABG BASE EXCESS 12.2 mmol/L (-2.0-2.0); ARTERIAL BLOOD GAS PH 7.332 (7.35-7.45)
--- NOTE | 2019-12-02 07:40 | NUR ---
CRITICAL PC02 77 ON ABG TODAY. NOTIFIED NEW ORDERS FOR BIPAP 05/02 AND TO NOTIFY . ATTEMPTED TO CALL . NO ANSWER, LEFT MESSAGE REQUESTING CALL BACK.
[2019-12-02 08:00] VITALS: BP 126/70
--- NOTE | 2019-12-02 08:50 | NUR ---
PHYSICAL THERAPY Patient seen this am 1;1 for therapy visit and was resting supine in bed upon therapist arrival. Patient identified by name / and joined by OT urology physician assistant who was present for observation this session. Patient reports no new c/o's at this time and transfers supine to sit EOB with SBA. Patient recorded SpO2 96%, HR 92 bpm on O2-3L via NC. Patient ambulated with use of wh walker, CGA to bathroom, 20'x 1, then additional 35'x 1, demonstating slow, steady noel and no LOB. Patient returned to supine in bed with mild fatigue and remained with call light, tray table and telephone. Will continue per POC as tolerated, total treatment time 16 minutes. Chriss Morocho, ANALYST GEOCHEMICAL PROSPECTING
--- NOTE | 2019-12-02 09:00 | NUR ---
case management received a call from Margarita at [facility], they are unable to visit patient at home due to being out of network with patient's insurance, case management will contact another company in network with patient's insurance, no other needs at this time
--- NOTE | 2019-12-02 09:38 | NUR ---
OT NOTE Pt was seen this A.M. 1:1 for 20 minute OT session. Upon arrival pt was supine in bed. Pt identified by name and and had no complaints at this time. Pt presented to therapy with continuous 3L-O2 via NC which she remained on throughout the entire session. Pt's resting SpO2 was 96% and heart rate 92 bpm. Pt transferred supine to sit EOB. Pt was able to verbalize energy conservation techniques previously educated on and stated that she had been doing them throughout the night and this morining and was able to notice a differance while doing them. Sit to stand completed from bed level with SBA and use of w/w followed by functional mobility to the bathroom with SBA and us of w/w. There she transferred on/off standard commode with SBA and use of grab bar. Challenged pt's dynamic standing tolerance for increased I and enhanced endurance and pt was able to tolerate aprox 3 minutes at a time before sitting due to fatigue. Upon arriving back to the EOB pt's SpO2 was 87% and heart rate 102 bpm after aprox 60 seconds pt's SpO2 raised back to 93% and heart rate 87 bpm. Pt was left supine in bed with call light in hand, tray table in place, and phone in reach. Continue with rec D/C plan to home with home health. SURAJ Mcleod/Mao
--- NOTE | 2019-12-02 09:48 | NUR ---
PLACED ON BIPAP BY RT TRISTON. 07/02. ABGs TO BE DONE IN 2 HRS. PT VOICES UNDERSTANDING.
[2019-12-02 12:00] VITALS: BP 123/64
[2019-12-02 12:25] LABS: ABG BASE EXCESS 13.6 mmol/L (-2.0-2.0); ARTERIAL BLOOD GAS PH 7.379 (7.35-7.45)
--- NOTE | 2019-12-02 12:47 | NUR ---
CONTINUES TO TOLERATE BIPAP WELL. NO COMPLAINTS VOICED. UPDATED ON PLAN OF CARE. CALL LIGHT IN REACH.
--- NOTE | 2019-12-02 13:21 | NUR ---
NIV referral: Sent NIV referral to [facility]. RN made aware as well as case management.
--- NOTE | 2019-12-02 13:40 | NUR ---
PATIENT TAKEN OFF OF BI-PAP FOR LUNCH, PLACED ON 3 L/M.
--- NOTE | 2019-12-02 15:00 | NUR ---
PATIENT PLACED ON BI-PAP 07/02, 30%. PULSE OX 96%.
--- NOTE | 2019-12-02 15:06 | NUR ---
case management contacted [facility], they will accept patient's insurance and will see patient when she is discharged, patient's information faxed to [facility]
[2019-12-02 16:00] VITALS: BP 122/68
--- NOTE | 2019-12-02 16:15 | NUR ---
CLINICALS FOR DAY 2 FAXED TO [facility] AT [facility] REQUESTED.
--- NOTE | 2019-12-02 17:54 | NUR ---
OFF BIPAP VIA RT AUBREY FOR DINNER.
--- NOTE | 2019-12-02 17:55 | NUR ---
PATIENT TAKEN OFF OF BI-PAP FOR DINNER, PLACED ON 3 L/M.
[2019-12-02 20:00] VITALS: BP 148/78
--- NOTE | 2019-12-02 20:28 | NUR ---
PATIENT MEDICATED WITH RESTORIL FOR C/O INSOMNIA. WILL CONITNUE TO MONITOR
--- NOTE | 2019-12-02 21:28 | NUR ---
RESTORIL APPEARS EFFECTIVE. PATIENT RESTING QUIETLY IN BED, NO DISTRESS NOTED. CALL LIGHT WITHIN REACH
[2019-12-03] VITALS: BP 126/65
[2019-12-03 06:11] LABS: BASO % 0.1 % (0.0-1.0); HEMATOCRIT 33.8 % (37.0-47.0); LYMPH # 0.6 10*3/uL (1.3-4.4); LYMPH % 5.6 % (27.0-41.0); MEAN CELL VOLUME 83.7 fl (81.0-99.0); MEAN CORPUSCULAR HGB 23.5 pg (27.0-31.0); MEAN CORPUSCULAR HGB CONC 28.1 g/dl (33.0-37.0); MEAN PLATELET VOLUME 10.4 fl (9.6-12.3); MONO # 0.4 10*3/uL (0.1-1.0); NEUT # 8.9 10*3/uL (2.3-7.9); NEUT % 89.4 % (47.0-73.0); PLATELET COUNT AUTOMATED 235 10*3/uL (130-400); RED BLOOD COUNT 4.04 10*6/uL (4.10-5.10); RED CELL DISTRI WIDTH 14.4 % (0-14.5)
[2019-12-03 06:22] LABS: BUN 25 mg/dl (7-24); CHLORIDE 96 mmol/L (98-107); POTASSIUM 3.6 mmol/L (3.5-5.1); SODIUM 136 mmol/L (136-145)
[2019-12-03 07:59] LABS: ABG BASE EXCESS 6.9 mmol/L (-2.0-2.0); ARTERIAL BLOOD GAS PH 7.26 (7.35-7.45)
[2019-12-03 08:00] VITALS: BP 130/68
--- NOTE | 2019-12-03 08:10 | NUR ---
INFORMED OF CRITICAL PCO2 ON ABG TODAY OF 81. NO NEW ORDERS. PT STILL ORDERED TO WEAR BIPAP 18/8 CONTINUOUS EXCEPT FOR MEALS.
--- NOTE | 2019-12-03 08:12 | NUR ---
NO VOICED COMPLAINTS AT THIS TIME. SAID SHE HAD A DIFFICULT TIME WITH BIPAP HS BUT WORE IT THE BEST SHE COULD. 3L NC IN PLACE. EDUCATED ON IMPORTANCE OF BIPAP USE, VOICED UNDERSTANDING. CALL LIGHT WITHIN REACH.
--- NOTE | 2019-12-03 08:40 | NUR ---
OT NOTE Pt was seen this A.M. 1:1 for 15 minute OT session. Upon arrival pt was sitting upright on the EOB. Pt identified by name and and had no complaints at this time. Pt presented to therapy with continuous 3L-O2 via NC which she remained on throughout the entire session. Pt completed sit to stand from bed level with SBA and use of w/w for UE support. Challenged pt's static standing tolerance needed for increased I in self care tasks and functional transfers, pt was able to tolerate aprox 5 minutes at a time before sitting due to fatigue. Functional mobility completed to the bathroom and back with SBA and use of w/w. Pt was able to verbalize energy conservation techniques previously educated on. Pt was left sitting upright on the EOB with call light in hand, tray table in place, and phone in reach. Continue with rec D/C plan to home with home health. SURAJ Mcleod/Mao
--- NOTE | 2019-12-03 08:45 | NUR ---
PHYSICAL THERAPY Patient seen this am 1;1 for therapy visit and was sitting up on EOB upon therapist arrival. Patient identified by name / and was very pleasant this morning on continuos O2-3L via NC. OT assistant case manager was present for observation this session as patient transfers sit to stand SBA and ambulates with use of wh walker, SBA, 60'x 1. Patient demonstrates slow, steady gait pattern, needing v/c for increased stride and no LOB upon returne to EOB sit. Patient however was a little fatigued, recording SpO2 94%, HR 64 bpm. Patient remained EOB sit with call light, tray table and telephone. Will continue per POC as tolerated, total treatment time 15 minutes. Chriss Morocho, RAIL ENGINEER
--- NOTE | 2019-12-03 11:10 | NUR ---
PT. PLACED ON BIPAP AT APPRX. [id number]
[2019-12-03 12:00] VITALS: BP 116/64
--- NOTE | 2019-12-03 12:49 | NUR ---
OCCUPATIONAL THERAPY CO-SIGN I approve of the Occupational Therapy notes written above. JOSE WESTON, OTR/L
--- NOTE | 2019-12-03 12:57 | NUR ---
PHYSICAL THERAPY CO-SIGN I approve of the Physical Therapy notes written above. Tisha Matos PT
--- NOTE | 2019-12-03 15:01 | NUR ---
PLACED ON BIPAP AT THIS TIME.
[2019-12-03 16:00] VITALS: BP 120/67
--- NOTE | 2019-12-03 16:32 | NUR ---
BIPAP REMOVED FOR DINNER AND MED PASS. 3LNC IN PLACE. NO VOICED COMPLAINTS. CALL LIGHT IN REACH.
--- NOTE | 2019-12-03 18:55 | NUR ---
Pt. is on trilogy from [facility] per Dr. Galan orders. 3l o2 bleed in. Pt. tolerating unit well. Rn notified.
[2019-12-03 20:00] VITALS: BP 137/71
--- NOTE | 2019-12-03 20:46 | NUR ---
PATIENT MEDICATED WITH RESTORIL FOR C/O INSOMNIA. WILL MONITOR
--- NOTE | 2019-12-03 21:46 | NUR ---
RESTORIL NOT EFFECTIVE AT THIS TIME
--- NOTE | 2019-12-03 22:00 | NUR ---
PATIENT REQUESTED TO BE OFF TRILIGY MACHINE FOR AN HOUR FOR A EATING BREAK. WILL MONITOR
--- NOTE | 2019-12-03 23:00 | NUR ---
PATIENT PLACED BACK ON TRILOGY VENT
[2019-12-04] VITALS: BP 125/70
--- NOTE | 2019-12-04 01:41 | NUR ---
PT CONTINUES TO WEAR HOME TRILOGY WITH 4L BLEED IN. PT TOLERANCE IS GOOD. ALARMS ARE AUDIBLE. NO RES DISTRESS OR SOB NOTED AT THIS TIME.
--- NOTE | 2019-12-04 04:59 | NUR ---
PATIENT TAKEN OFF OF [facility] FOR BREAK PER PATIENT REQUEST.
[2019-12-04 06:43] LABS: BUN 26 mg/dl (7-24); CHLORIDE 98 mmol/L (98-107); CREATININE 0.91 mg/dL (0.55-1.02); POTASSIUM 3.5 mmol/L (3.5-5.1); SODIUM 137 mmol/L (136-145)
[2019-12-04 07:22] LABS: ARTERIAL BLOOD GAS PH 7.264 (7.35-7.45)
[2019-12-04 08:00] VITALS: BP 125/67
[2019-12-04 12:00] VITALS: BP 120/70
[2019-12-04] MEDS ORDERED: LEVAQUIN500 M2 PO (14:02)
[2019-12-04] MEDS ORDERED: KLOR-CON M2020 ME1 PO (14:02)
[2019-12-04] MEDS ORDERED: PREDNISONE10 MG PO (14:02)
[2019-12-04 16:00] VITALS: BP 115/62
--- NOTE | 2019-12-04 16:05 | NUR ---
PT WORE TRILOGY ON AND OFF ALL DAY
--- NOTE | 2019-12-04 17:16 | NUR ---
DISCHARGE INSTRUCTIONS REVIEWED. ANGELO REOVED. PTS FAMILY INFORMED THAT PT WILL NEED A CONTAINER FOR TRILOGY MACHINE TOPANSPORTED IN.
--- NOTE | 2019-12-04 17:50 | NUR ---
PT DISCHARGED HOME. PT TRANSPORTED DOWN VIA WHEELCHAIR TO PRIVATE CAR.
== END 2019-12-04 17:50 | disposition home health service (06) | DRG 193 ==
LOC: ED 13:57 → EDHOLD 17:19 → 4E 17:19
PROVIDERS: Emergency Medicine; Family Medicine; Internal Medicine; Internal Medicine Critical Care Medicine; Student in an Organized Health Care Education/Training Program; ADMIT Internal Medicine
PROC: 5A09357 Assistance with Respiratory Ventilation, Less than 24 Consecutive Hours, Continuous Positive Airway Pressure (ICD-10-PCS; principal; 2019-12-03)
PROC: 5A09357 Assistance with Respiratory Ventilation, Less than 24 Consecutive Hours, Continuous Positive Airway Pressure (ICD-10-PCS; 2019-12-04)
DX: J18.9 Pneumonia, unspecified organism (principal); J96.21 Acute and chronic respiratory failure with hypoxia; J96.22 Acute and chronic respiratory failure with hypercapnia; J44.0 Chronic obstructive pulmonary disease with (acute) lower respiratory infection; J44.1 Chronic obstructive pulmonary disease with (acute) exacerbation; E87.3 Alkalosis; I13.0 Hypertensive heart and chronic kidney disease with heart failure and stage 1 through stage 4 chronic kidney disease, or unspecified chronic kidney disease; I48.21 Permanent atrial fibrillation; R73.9 Hyperglycemia, unspecified; I50.9 Heart failure, unspecified; K21.9 Gastro-esophageal reflux disease without esophagitis; E03.9 Hypothyroidism, unspecified; E53.8 Deficiency of other specified B group vitamins; E61.1 Iron deficiency; N18.3 Chronic kidney disease, stage 3 (moderate); F31.9 Bipolar disorder, unspecified; I25.10 Atherosclerotic heart disease of native coronary artery without angina pectoris; E78.00 Pure hypercholesterolemia, unspecified; Z95.1 Presence of aortocoronary bypass graft; Z88.8 Allergy status to other drugs, medicaments and biological substances; Z87.891 Personal history of nicotine dependence; Z90.710 Acquired absence of both cervix and uterus; Z79.899 Other long term (current) drug therapy; Z79.01 Long term (current) use of anticoagulants